=== PATIENT | male | born 1980 | race Two or more races ===

== ENCOUNTER 2018-10-03 17:00 | Emergency (ER) | payer OTHER, SELFPAY ==
[2018-10-03] MEDS ORDERED: Adacel (T-DAP) 0.5 ML SYRINGE ONE (17:19)
== END 2018-10-03 17:32 | disposition home or self-care (01) ==
LOC: MADERS 17:00
DX: S61.012A Laceration without foreign body of left thumb without damage to nail, initial encounter (principal); Z87.891 Personal history of nicotine dependence; W26.0XXA Contact with knife, initial encounter
CPT/HCPCS: 12001; 90471; 90715

== ENCOUNTER 2022-05-20 18:56 | Emergency (ER) | payer SELFPAY ==
[2022-05-20] MEDS ORDERED: Ciprofloxacin 500 MG TAB ONE (19:27)
[2022-05-20] MEDS ORDERED: Boostrix 0.5 ML (Tdap) VIAL (>/=7 yrs of age) ONE (19:27)
== END 2022-05-20 19:58 | disposition home or self-care (01) ==
LOC: MADERS 18:56
DX: S91.332A Puncture wound without foreign body, left foot, initial encounter (principal); W26.8XXA Contact with other sharp object(s), not elsewhere classified, initial encounter; Z23 Encounter for immunization; Z87.891 Personal history of nicotine dependence
CPT/HCPCS: 90471; 90715

== ENCOUNTER 2023-06-29 17:55 | Emergency (ER) | payer OTHER ==
[2023-06-29] MEDS ORDERED: Lidocaine 1% w/Epinephrine 1:100K 20 ML VIAL ONE (18:11)
[2023-06-29] MEDS ORDERED: Amoxicillin/Potassium Clav 875 MG TAB ONE (18:11)
[2023-06-29] MEDS ORDERED: Bupivacaine PF 0.5% 30 ML VIAL ONE (18:12)
== END 2023-06-29 18:42 | disposition home or self-care (01) ==
LOC: MADERS 17:55
DX: K08.89 Other specified disorders of teeth and supporting structures (principal); Z87.891 Personal history of nicotine dependence
CPT/HCPCS: 64400; S0020

== ENCOUNTER 2024-02-17 21:57 | Emergency (ER) | payer OTHER ==
[2024-02-17] MEDS ORDERED: Lorazepam 2 MG/ML VIAL ONE (22:58)
[2024-02-18 00:04] LABS: Hematocrit 49.5 % (42.0-52.0); Hemoglobin 15.1 g/dL (14.0-18.0); MDiff Complete? YES; Mean Corpuscular HGB CONC 30.5 g/dL (32.0-36.0); Mean Corpuscular Hemoglobin 26.6 pg (27.0-31.0); Mean Corpuscular Volume 87.3 fl (78.0-98.0); Mean Platelet Volume 7.8 fL (7.4-10.4); Platelet Count 335 10x3/uL (130-400); Red Blood Cell (RBC) Count 5.67 mill/uL (4.70-6.10); White Blood Cell (WBC) Count 10.4 10x3/uL (4.8-10.8)
[2024-02-18 00:05] LABS: Lymphocytes 15 % (21-51); Monocytes 6 % (0-10); Neutrophil 79 % (42-75)
[2024-02-18 00:34] LABS: ALT (SGPT) 24 U/L (8-55); AST (SGOT) 18 U/L (5-34); Albumin 4.2 g/dL (3.5-5.0); Alkaline Phosphatase 76 U/L (40-110); Anion Gap 17 mmol/L (10-20); BUN (Urea Nitrogen) 8 mg/dL (8.9-20.6); Bilirubin, Total 0.3 mg/dL (0.2-1.2); CK (CPK) 328 U/L (30-200); Calc. Creatinine Clearance 0 mL/min (70-130); Calcium 9.2 mg/dL (7.8-10.44); Carbon Dioxide 19 mmol/L (22-29); Chloride 109 mmol/L (98-107); Estimated GFR 90; Globulin 3.1 g/dL (2.4-3.5); Glucose 120 mg/dL (70-105); Magnesium 1.9 mg/dL (1.6-2.6); Potassium 3.2 mmol/L (3.5-5.1); Protein, Total 7.3 g/dL (6.0-8.3); Sodium 142 mmol/L (136-145)
== END 2024-02-18 01:27 | disposition home or self-care (01) ==
LOC: MADERS 21:57
DX: R00.0 Tachycardia, unspecified (principal); F15.129 Other stimulant abuse with intoxication, unspecified; M62.82 Rhabdomyolysis
CPT/HCPCS: 36415; 80053; 82550; 83735; 85025; 93005; 96361; 96374; J2060